=== PATIENT | female | born 1985 | race Asian ===

== ENCOUNTER 2023-03-22 08:18 | Emergency (ER) | payer SELFPAY ==
[~2023-03-22] VITALS: Ht 152.4 cm; Wt 52.2 kg
--- NOTE | 2023-03-22 08:30 | NUR ---
CHEST TIGHTNESS, DISCOMFORT SINCE 0300. ADMITS TO COCAINE/ALCOHOL USE LAST NIGHT
--- NOTE | 2023-03-22 08:35 | NUR ---
AT BEDSIDE FOR EVAL
--- NOTE | 2023-03-22 08:45 | NUR ---
ESTBALISHED IV LINE 20 G LAC
[2023-03-22] MEDS ORDERED: LORAZEPAM INJ 2 MG/ML VIAL ONE (08:55)
[2023-03-22] MEDS ORDERED: LORAZEPAM INJ 2 MG/ML VIAL IV ONE (09:00)
[2023-03-22 09:18] LABS: BASOPHILS % (AUTO) 0.2 % (0.0-2.0); EOSINOPHILS % (AUTO) 0.5 % (0.0-6.0); HEMATOCRIT 45 % (33-45); HEMOGLOBIN 14.9 g/dL (11.5-14.8); LYMPHOCYTES # (AUTO) 1.4 K/uL (0.8-4.8); LYMPHOCYTES % (AUTO) 15.7 % (20.0-44.0); MEAN CORPUSCULAR HGB CONC 33 g/dl (31.0-36.0); MEAN CORPUSCULAR VOLUME 95 fL (82-100); MONOCYTES # (AUTO) 0.6 K/uL (0.1-1.30); MONOCYTES % (AUTO) 6.7 % (2.0-12.0); NEUTROPHILS # (AUTO) 6.7 K/uL (1.8-8.9); NEUTROPHILS % (AUTO) 76.9 % (43.0-81.0); PLATELET COUNT (AUTO) 426 K/uL (150-450); RED BLOOD CELL COUNT(AUTO) 4.73 MIL/uL (4.0-5.2); WHITE BLOOD COUNT (AUTO) 8.7 K/uL (4.3-11.0)
--- NOTE | 2023-03-22 09:21 | NUR ---
RESTING COMFORTABLY , NO SIGNS AND SYMPTOMS OF DISTRESS,
--- NOTE | 2023-03-22 09:30 | NUR ---
WAIVER SIGNED BY PATIENT
[2023-03-22 09:32] LABS: CALCIUM, SERUM 9.4 mg/dL (8.5-10.1); CARBON DIOXIDE 26 mmol/L (21-32); CHLORIDE 99 mmol/L (98-107); CREATININE 0.8 mg/dL (0.6-1.3); GLUCOSE 102 mg/dL (74-106); POTASSIUM 3.6 mmol/L (3.5-5.1); SODIUM SERUM 136 mmol/L (136-145); UREA NITROGEN, BLOOD 13 mg/dL (7-18)
--- NOTE | 2023-03-22 09:43 | NUR ---
XRAY AT BEDSIDE
--- NOTE | 2023-03-22 09:44 | NUR ---
HAND II CUTTER AT BEDSIDE
--- NOTE | 2023-03-22 10:32 | NUR ---
Patient discharged to home in stable condition. Written and verbal after care instructions given. Patient verbalizes understanding of instruction.
--- NOTE | 2023-03-22 10:32 | NUR ---
IV removed. Catheter intact and site benign. Pressure and 4x4 applied to site. No bleeding noted.
[2023-03-22 10:43] VITALS: BP 123/61; TEMP 98.1
== END 2023-03-22 10:43 | disposition home or self-care (01) ==
LOC: ER 08:24
DX: R07.89 Other chest pain (principal); F14.10 Cocaine abuse, uncomplicated; F17.210 Nicotine dependence, cigarettes, uncomplicated
CPT/HCPCS: 99285; 96374; 71045; 93005; 85025; 80048; 36415; 84484; J2060; J7030; A4223